=== PATIENT | female | born 1945 | race Caucasian/White ===

== ENCOUNTER → 2021-11-05 | Day surgery (SDC) | payer MEDICARE ==
[~2021-11-05] VITALS: Ht 157.5 cm; Wt 54.4 kg
[~2021-11-05] MED LIST: CYMBALTA20 MG PO; SINEQUAN10 MG PO
== END | disposition home or self-care (01) ==
LOC: FAS 12:43
DX: H26.491 Other secondary cataract, right eye (principal); I10 Essential (primary) hypertension; Z79.899 Other long term (current) drug therapy

== ENCOUNTER → 2021-12-03 | Day surgery (SDC) | payer MEDICARE ==
[~2021-12-03] VITALS: Ht 157.5 cm; Wt 54.4 kg
[~2021-12-03] MED LIST changes: +BIOTIN PO; +OS-CAL500 MG PO
== END | disposition home or self-care (01) ==
LOC: FAS 12:54
DX: H26.493 Other secondary cataract, bilateral (principal); Z88.2 Allergy status to sulfonamides; Z88.8 Allergy status to other drugs, medicaments and biological substances